=== PATIENT | male | born 1980 | race Caucasian/White ===

== ENCOUNTER 2023-08-20 17:26 | Emergency (ER) | payer MEDICAID, SELFPAY ==
--- NOTE | 2023-08-20 17:28 | CTR_ITS ---
PROCEDURE INFORMATION: Exam: CT Right Upper Extremity With Contrast, Hand Exam date and time: 08/20/2023 6:16 PM Age: 43 years old Clinical indication: Pain; Right; Prior surgery; Surgery date: 3-7 days post-operative; Surgery type: Hand was caught in tractor fan belt pully. PT states he thinks they repaired some tendons ; Additional info: Infection TECHNIQUE: Imaging protocol: Computed tomography of the right upper extremity with contrast. Exam focused on the hand. Radiation optimization: All CT scans at this facility use at least one of these dose optimization techniques: automated exposure control; mA and/or kV adjustment per patient size (includes targeted exams where dose is matched to clinical indication); or iterative reconstruction. Contrast material: OMNI 350; Contrast volume: 100 ml; Contrast route: INTRAVENOUS (IV); REPORTING DATA: Count of CT and Cardiac NM exams in prior 12 months: This patient has received 0 known CTs and 0 known cardiac nuclear medicine studies in the 12 months prior to the current study. COMPARISON: No relevant prior studies available. RADIATION DOSE METRICS: Total DLP (mGy-cm): 145 FINDINGS: Bones/joints: No cortical irregularity or intramedullary lucency to suggest osteomyelitis. Soft tissues: There is a subcutaneous fluid collection in the hypothenar and volar region right hand extending into the deep muscle and tendon layers and surrounding the flexor tendons of the 5th, 4th and 3rd digits with peripheral enhancement concerning for abscess. CT/CT hand RT w con [id number] IMPRESSION: There is a subcutaneous fluid collection in the hypothenar region right hand extending into the deep muscle layers and surrounding the flexor tendons of the 5th, 4th and 3rd digits with peripheral enhancement concerning for superimposed infection.
--- NOTE | 2023-08-20 17:28 | W.ED.UPPEXIN ---
HPI - Extremity Injury (Upper) General: Chief Complaint: Extremity Injury, Upper Stated Complaint: Possible infection -Hand Time Seen by Provider: 08/20/23 17:27 History of Present Illness: 43-year-old male presents to the emergency department in police custody. He states that approximately 1 week ago he was at [facility] in [place] and had hand surgery. He states they drained a very large abscess at that time. He was returned to police custody and over the previous 2 days his hand has become significantly swollen edematous and painful. He denies numbness or tingling to the extremity. It does look actively infected as on the palmar aspect of his right hand there is a large fluid-filled pocket. Review of Systems General: Reports: 10 or more systems reviewed and unremarkable except in HPI and below Musc: Reports: extremity pain and extremity swelling Physical Exam Narrative: EXAM NARRATIVE: Constitutional: the patient appears well nourished and with normal development. Vital signs reviewed as documented. HENMT: Normocephalic, atraumatic. Extermal ears with normal appearance without drainage. Nose without drainage, normal appearance. Mucus membranes moist. Neck is supple, No jugular venous distension, trachea is midline, no appreciable carotid bruits. No lymphadenopathy. No meningeal signs. Flexion, extension and lateral rotation is without pain. Eyes: Pupils are equal, round, reactive to light and accommodation. No scleral icterus. Extra-ocular movement are intact. Thorax is symmetrical and with equal rise and fall with respirations. Resp: Lungs are clear to auscultation. No wheezes, rales, crackles or ronchi at present. Cardio: Regular rate and rhythm. Positive S1, S2. No appreciable murmurs, rubs or gallops. GI: Abdominal exam reveals normal bowel sounds to all quadrants. No organomegaly. No obvious palpable masses noted. No hepatomegally appreciated. Soft, nontender to palpation. Extremity: Right hand significantly edematous with postsurgical incision that appears to be well approximated and with sutures in place. There is no obvious drainage from the surgical site but to the lateral aspect of the palmar surface of the right hand there does appear to be a large fluid-filled pus pocket consistent with an abscess. The remainder of the extremities are non-edematous and both femoral and pedal pulses are 2+ and equal bilaterally. Moves all extremities well, sensation in all extremities. Patient has increased pain to the right hand and erythema to the dorsal aspect of the right hand extending into the wrist. Neuro: Alert and oriented x4, person, place, time and situation. Cranial nerves II through XII are grossly intact, there is no focal neurological deficits that I can appreciate at present. Motor strength in the upper and lower extremities are equal and bilateral 5/5. Psych: Cooperative, calm, normal thought process, appropriate judgment. Skin: No lesions, rashes. No gross abnormalities noted. Back: Symmetrical, no obvious deformity, No CVA tenderness Course ED course: I discussed the radiographic and laboratory findings with the patient and with the deputy fire marshal that is transporting him. I advised that we could attempt to transfer the patient to [facility] and the patient requested that we provide him antibiotics and that he would follow-up within the next 24 hours with the orthopedic hand surgeon that evaluated and provided surgery to his right hand at [facility] in [facility]. I did provide the patient IV pain medication as well as IV antibiotics while here in the emergency department and he states he has significant improvement in control of his pain at this time. I did discuss with the deputy fire marshal that transported the patient here to the emergency department the importance of the patient continue to take his antibiotics and he advised that he could also receive a prescription for pain medication and I did provide that at the time of discharge. Vital Signs: Vital signs: Vital Signs Temperature 99.2 F 08/20/23 17:33 Pulse Rate 83 08/20/23 19:29 Respiratory Rate 16 08/20/23 19:29 Blood Pressure 121/80 08/20/23 19:29 Pulse Oximetry 99 08/20/23 19:29 Oxygen Delivery Me thod Room Air 08/20/23 19:29 MDM - Extremity Injury (Upper) Medical Decision Making Physical exam completed and documented, given the patient's recent surgical intervention I will obtain IV access and provide IV pain medication and antiemetic. I will obtain a CBC, CMP, ESR and a CRP. I will obtain a CT scan of the right hand with contrast to determine the extent of the obvious palmar aspect abscess. Differential diagnosis includes cellulitis, postsurgical complication/infection, osteomyelitis, Lab Data I reviewed the patient's lab results. 08/20/23 17:49 08/20/23 17:[address] 08/20/23 17:28 IMPRESSION: There is a subcutaneous fluid collection in the hypothenar region right hand extending into the deep muscle layers and surrounding the flexor tendons of the 5th, 4th and 3rd digits with peripheral enhancement concerning for superimposed infection. ADDENDUM: 08/20/231934 THIS REPORT CONTAINS FINDINGS THAT MAY BE CRITICAL TO PATIENT CARE. I requested a conference call with the covering provider on review of the case to discuss the findings. I was notified by [facility] staff that KENY Swift had received the report, was aware of the findings, and chose not to speak directly. Laboratory Results WBC 15.03 10^3/uL (3.29-11.43) H 08/20/23 17:49 RBC 4.02 10^6/uL (3.85-5.65) 08/20/23 17:49 Hgb 12.00 g/dL (11.27-16.99) 08/20/23 17:49 Hct 37.1 % (37-53) 08/20/23 17:49 MCV 92.3 fl (82-101) 08/20/23 17:49 MCH 29.9 pg (27-33) 08/20/23 17:49 MCHC 32.3 g/dL (30-55) 08/20/23 17:49 RDW 16.6 % (12.1-15.1) H 08/20/23 17:49 Plt Count 417 10^3/cmm (157-399) H 08/20/23 17:49 MPV 10.8 fL (7.4-10.4) H 08/20/23 17:49 Neut % (Auto) 72.1 % 08/20/23 17:49 Lymph % (Auto) 18.5 % 08/20/23 17:49 [place] % (Auto) 8.5 % 08/20/23 17:49 Eos % (Auto) 0.3 % 08/20/23 17:49 Baso % (Auto) 0.3 % 08/20/23 17:49 Neut # (Auto) 10.82 10^3/uL (1.8-7.7) H 08/20/23 17:49 Lymph # (Auto) 2.8 10^3/uL (0.8-4.8) 08/20/23 17:49 [place] # (Auto) 1.3 10^3/uL (0.2-0.9) H 08/20/23 17:49 Eos # (Auto) 0.1 10^3/uL (0.0-0.8) 08/20/23 17:49 Baso # (Auto) 0.1 10^3/uL (0.0-0.1) 08/20/23 17:49 Nucleated RBC % (auto) 0 % 08/20/23 17:49 Nucleated RBCs # 0.0 /100WBC 08/20/23 17:49 ESR 51 mm/hr (0-10) H 08/20/23 17:49 Sodium 145 mmol/L (136-145) 08/20/23 17:49 Potassium 3.5 mmol/L (3.5-5.1) 08/20/23 17:49 Chloride 109 mmol/L (98-107) H 08/20/23 17:49 Carbon Dioxide 25 mmol/L (22-29) 08/20/23 17:49 Anion Gap 14.5 (5-19) 08/20/23 17:49 BUN 14 mg/dL (6-20) 08/20/23 17:49 Creatinine 0.6 mg/dL (0.7-1.2) L 08/20/23 17:49 GFR Calculation 147.8 mL/min (90-130) H 08/20/23 17:49 Glucose 90 mg/dL (65-115) 08/20/23 17:49 Calculated Osmolality 300 mOsm/kg (285-295) H 08/20/23 17:49 Calcium 9.3 mg/dL (8.5-10.5) 08/20/23 17:49 Total Bilirubin 0.2 mg/dL (0.15-1.2) 08/20/23 17:49 AST 126 U/L (0-40) H 08/20/23 17:49 ALT 163 U/L (0-41) H 08/20/23 17:49 Alkaline Phosphatase 96 U/L (40-130) 08/20/23 17:49 C-Reactive Protein 51.1 mg/L (0.0-4.9) H 08/20/23 17:49 Total Protein 7.6 g/dL (6.6-8.7) 08/20/23 17:49 Albumin 4.1 g/dL (3.5-5.2) 08/20/23 17:49 Globulin 3.5 g/dL (1.3-4.6) 08/20/23 17:49 All radiology interpretation(s) finalized by discharge Discharge Plan Discharge Patient Disposition: Home Clinical Impression: Post-operative infection, Hand pain, right Condition: Stable Prescriptions: New clindamycin HCl [Cleocin HCl] 300 mg capsule 300 mg PO Q6H 10 Days Qty: 40 0RF hydrocodone-acetaminophen 10-325 mg tablet 1 tab PO TID PRN (Reason: pain) Qty: 14 0RF Discharge Orders: Discharge ED (Routine); Ordered 08/20/23 Ordered By: Keny Spencer Discharge Diet: Advance as tolerated Discharge Activity: Resume usual activity Patient Instructions: Opioid Safety, Pain Management Activity Restrictions/Additional Instructions: It is extremely important that you take all of your antibiotics and keep your wound clean and use antibiotic soap twice a day on the injured hand. It is equally and extremely important that you contact your orthopedic hand surgeon that completed the surgery on your hand on 08/13/2023 at [facility] in [facility] as you currently have an infection that is considered a post surgical infection and can cause worsening of your hand pain and potential loss of limb if not treated quickly and properly within the next 24 hours. Activity Restrictions/Additional Instructions: Thank you for choosing [facility] for your healthcare needs today. Please realize that you were seen in the Emergency Department and that we are providing you with an emergency medical screening exam and this may not be complete and all inclusive of all the testing and or medical work-up that you may need to determine your ailment or severity of your illness. It is very important that you follow-up as instructed with your Primary care provider or Specialist for additional evaluation and to discuss your medical treatment plan. You may return to the Emergency Department should you have concerns or if your condition changes or worsens in any way. Coding Level of Care Code ED Nursing Information Systems Coordinator for Shona Berry
[2023-08-20 17:33] VITALS: BP 125/84; PULSE 94; RESP 16; TEMP 37.3; O2SAT 99; BMI 23.1
[2023-08-20] MEDS: iohexol 350 mg/mL 500 mL Btl (per mL) IV (18:32)
[2023-08-20] MEDS: ondansetron 2 mg/ML SDV 2 mL 4 MG IVP (18:33)
[2023-08-20 18:36] VITALS: RESP 18; O2SAT 94
[2023-08-20] MEDS: fentaNYL 50 mcg/mL INJ 2mL IVP (18:36)
[2023-08-20 18:37] LABS: Basophils # 0.1 10^3/uL (0.0-0.1); Basophils % 0.3 %; Eosinophils # 0.1 10^3/uL (0.0-0.8); Eosinophils % 0.3 %; Hematocrit 37.1 % (37-53); Lymphocytes # 2.8 10^3/uL (0.8-4.8); Lymphocytes % 18.5 %; Mean Corpuscular HGB Conc 32.3 g/dL (30-55); Mean Corpuscular Hemoglobin 29.9 pg (27-33); Mean Corpuscular Volume 92.3 fl (82-101); Mean Platelet Volume 10.8 fL (7.4-10.4); Monocytes # 1.3 10^3/uL (0.2-0.9); Monocytes % 8.5 %; Neutrophils # 10.82 10^3/uL (1.8-7.7); Neutrophils % 72.1 %; Nucleated Red Blood Cells % 0 %; Platelet Count 417 10^3/cmm (157-399); Red Blood Count 4.02 10^6/uL (3.85-5.65); Red Cell Distribution Width 16.6 % (12.1-15.1); White Blood Count 15.03 10^3/uL (3.29-11.43)
[2023-08-20 18:41] VITALS: BP 118/78; PULSE 83; RESP 16; O2SAT 100
[2023-08-20 19:02] LABS: Alanine Aminotransferase 163 U/L (0-41); Albumin Level 4.1 g/dL (3.5-5.2); Alkaline Phosphatase 96 U/L (40-130); Anion Gap 14.5 (5-19); Aspartate Amino Transferase 126 U/L (0-40); Blood Urea Nitrogen 14 mg/dL (6-20); C Reactive Protein 51.1 mg/L (0.0-4.9); Calcium 9.3 mg/dL (8.5-10.5); Carbon Dioxide 25 mmol/L (22-29); Chloride 109 mmol/L (98-107); Globulin 3.5 g/dL (1.3-4.6); Glomerular Filtration Rate 147.8 mL/min (90-130); Glucose 90 mg/dL (65-115); Osmolality Calculated 300 mOsm/kg (285-295); Potassium 3.5 mmol/L (3.5-5.1); Sodium 145 mmol/L (136-145); Total Bilirubin 0.2 mg/dL (0.15-1.2); Total Protein 7.6 g/dL (6.6-8.7)
[2023-08-20 19:18] LABS: Erythrocyte Sedimentation Rate 51 mm/hr (0-10)
[2023-08-20 19:29] VITALS: BP 121/80; PULSE 83; RESP 16; O2SAT 99
[2023-08-20] MEDS: clindamycin 900 MG/50 ML PREMIX 100 MG IV (19:29)
[2023-08-20] MEDS: HYDROcodone-acetaminophen 10-325 mg Tablet 2 TAB PO (20:33)
== END 2023-08-20 20:41 | disposition home or self-care (01) ==
PROVIDERS: Emergency Provider Internal Medicine
DX: T81.49XA Infection following a procedure, other surgical site, initial encounter (principal); Y83.8 Other surgical procedures as the cause of abnormal reaction of the patient, or of later complication, without mention of misadventure at the time of the procedure
CPT/HCPCS: 36415; 73201; 80053; 85025; 85651; 86140; 87040; 96365; 96375; 99285; J2405; J3010; J3490; Q9967